=== PATIENT | male | born 1995 | race Two or more races ===

== ENCOUNTER 2020-08-07 14:53 | Emergency (ER) | payer SELFPAY ==
[~2020-08-07] VITALS: Ht 170.2 cm; Wt 90.0 kg
[2020-08-07 14:55] VITALS: BP 146/97
--- NOTE | 2020-08-07 15:07 | PHYS DOC ---
General Adult EDM: Chief Complaint: INSECT BITE HPI: HPI: History obtained from the patient. Nephew uses atm mechanic with patient's permission. Patient states 30 minutes prior to arrival he was eating outside when he was stung on his right hand by a bee. He states he has no history of allergic reaction to bee stings. He states that he is noted some redness and swelling to the right hand. He does note some mild difficulty in breathing. He states that he feels his tongue is somewhat swollen. Denies vomiting. Denies rash. Denies any other environmental or medication allergies. Denies chest pain. Eyes nausea. Has not taken the medication prior to arrival. No other complaints. Review of Systems: Review of Systems: Constitutional: Denies fever or chills. [] Eyes: Denies change in visual acuity. [] HENT: Denies nasal congestion or sore throat. [] Respiratory: Denies cough or shortness of breath. [] Cardiovascular: Denies chest pain or edema. [] GI: Denies abdominal pain, nausea, vomiting, bloody stools or diarrhea. [] : Denies dysuria. [] Musculoskeletal: Denies back pain or joint pain. [] Integument: D positive for right hand swelling Neurologic: Denies headache, focal weakness or sensory changes. [] Endocrine: Denies polyuria or polydipsia. [] Lymphatic: Denies swollen glands. [] Psychiatric: Denies depression or anxiety. [] Heart Score: Risk Factors: Risk Factors: DM, Current or recent (<one month) smoker, HTN, HLP, family history of CAD, obesity. Risk Scores: Score 0 - 3: 2.5% MACE over next 6 weeks - Discharge Home Score 4 - 6: 20.3% MACE over next 6 weeks - Admit for Clinical Observation Score 7 - 10: 72.7% MACE over next 6 weeks - Early Invasive Strategies Physical Exam: PE: Constitutional: Well developed, well nourished, no acute distress, non-toxic appearance. [] HENT: Normocephalic, atraumatic, bilateral external ears normal, oropharynx moist, no oral exudates, nose normal. No signs of tongue or lip swelling. [] Eyes: PERRLA, EOMI, conjunctiva normal, no discharge. [] Neck: Normal range of motion, no tenderness, supple, no stridor. [] Cardiovascular:Heart rate regular rhythm, no murmur [] Lungs & Thorax: Bilateral breath sounds clear to auscultation. No stridulous breath sounds noted over the anterior trachea. No wheezes appreciated. No signs of respiratory distress. [] Abdomen: Bowel sounds normal, soft, no tenderness, no masses, no pulsatile masses. [] Skin: Warm, dry, no erythema, no rash. No urticarial rashes appreciated throughout.[] Back: No tenderness, no CVA tenderness. [] Extremities: Mild swelling noted to the dorsum of the right hand. No signs of retained stinger. Neurologic: Alert and oriented X 3, normal motor function, normal sensory function, no focal deficits noted. [] Psychologic: Affect normal, judgement normal, mood normal. [] Current Patient Data: Vital Signs: Vital Signs Date Time Temp Pulse Resp B/P (MAP) Pulse Ox O2 Delivery O2 Flow Rate FiO2 08/07/20 14:55 98.8 86 18 146/97 (113) 98 Room Air 98.8 EKG: EKG: [] Radiology/Procedures: Radiology/Procedures: [] Course & Med Decision Making: Course & Med Decision Making Pertinent Labs and Imaging studies reviewed. (See chart for details) [] Patient is a well-appearing 24-year-old male who presents with chief complaint of bee sting to the right hand. He notes some localized swelling to right hand. He does report some difficulty breathing but no signs of wheezing or stridulous breath sounds. No signs of oral swelling. He was given oral Pepcid, prednisone, and Benadryl. He was monitored closely and showed no signs of clinical or respiratory deterioration. At this time the patient is appropriate for discharge home. Epinephrine will be deferred given there are no signs of anaphylaxis. Patient be discharged home with medication. Return cautions discussed and understood. Stable for discharge home. Dragon Disclaimer: Carter Disclaimer: This electronic medical record was generated, in whole or in part, using a voice recognition dictation system. Departure Departure Impression: Primary Impression: Bee sting Qualified Codes: T63.441A - Toxic effect of venom of bees, accidental (unintentional), initial encounter Additional Impression: Allergic reaction Qualified Codes: T78.40XA - Allergy, unspecified, initial encounter Disposition: 01 HOME, SELF-CARE Condition: STABLE Patient Instructions: Bee, Wasp, or Hornet Sting Additional Instructions: Please follow-up with your primary care physician in the next 2 to 3 days. Scripts Prednisone (PREDNISONE) 20 Mg Tablet 40 MG PO DAILY for 4 Days, #8 TAB Prov: RON PARKINSON DO 08/07/20 Famotidine (PEPCID) 20 Mg Tablet 20 MG PO BID for 7 Days, #14 TAB Prov: RON PARKINSON DO 08/07/20 Diphenhydramine Hcl (BENADRYL) 25 Mg Capsule 25 MG PO TID PRN for ALLERGIES for 3 Days, #9 CAP Prov: RON PARKINSON DO 08/07/20 RON PARKINSON DO Aug 07, 2020 15:07
[2020-08-07] MEDS ORDERED: predniSONE 20 MG TABLET PO ONE (15:15)
[2020-08-07] MEDS ORDERED: FAMOTIDINE 20 MG TABLET. PO ONE (15:15)
[2020-08-07] MEDS ORDERED: diphenhydrAMINE HCL 25 MG CAPSULE PO ONE (15:15)
[2020-08-07] MEDS ORDERED: PRED20TA PO (16:51)
[2020-08-07] MEDS ORDERED: DIPH25CA58 PO (16:51)
[2020-08-07] MEDS ORDERED: FAMO-63 PO (16:51)
== END 2020-08-07 16:55 | disposition home or self-care (01) ==
LOC: ER 14:53
DX: T63.441A Toxic effect of venom of bees, accidental (unintentional), initial encounter (principal); R60.0 Localized edema; Y92.89 Other specified places as the place of occurrence of the external cause
CPT/HCPCS: 99284; J7512; Q0163